=== PATIENT | male | born 1965 | race Caucasian/White ===

== ENCOUNTER 2016-04-28 21:59 | Emergency (ER) | payer OTHER ==
[~2016-04-28] VITALS: Ht 180.3 cm; Wt 74.0 kg
[~2016-04-28 21:59] MED LIST: BACT800T5 PO; BENA25TA3 PO; CLIN1CAP6 PO; IBUP-232 PO; PRED20 PO
[2016-04-28 22:02] VITALS: BP 141/88; PULSE 102; RESP 20; TEMP 98.5; O2SAT 93
[2016-04-28 22:45] LABS: AUTOMATED NEUTROPHIL # 2.9 TH/MM3 (1.8-7.7); BASOPHIL # 0.1 TH/MM3 (0-0.2); BASOPHIL % 1.6 % (0.0-2.0); EOSINOPHIL # 0.2 TH/MM3 (0-0.4); EOSINOPHIL % 2.5 % (0.0-4.0); HEMATOCRIT 42.6 % (39.0-51.0); HEMO FLAGS DIFF FINAL; LYMPH % 48.1 % (9.0-44.0); LYMPHOCYTE # 3.6 TH/MM3 (1.0-4.8); MEAN CELL VOLUME 89.9 FL (80.0-100.0); MEAN CORPUSCULAR HEMOGLOBIN 31.6 PG (27.0-34.0); MEAN CORPUSCULAR HGB CONC 35.2 % (32.0-36.0); MONO % 8.7 % (0.0-8.0); NEUT % 39.1 % (16.0-70.0); PLATELET COUNT 261 TH/MM3 (150-450); RED BLOOD COUNT 4.74 MIL/MM3 (4.50-5.90); RED CELL DISTRIBUTION WIDTH 14.2 % (11.6-17.2); WHITE BLOOD COUNT 7.4 TH/MM3 (4.0-11.0)
--- NOTE | 2016-04-28 23:02 | PD ---
HPI . Abdominal pain and chronic alcohol abuse Chief Complaint: Psychiatric Symptoms Time Seen by Provider: 22:14 Travel History International Travel<30 days: No Contact w/Intl Traveler<30days: No Traveled to known affect area: No History of Present Illness HPI Patient presents stating that he is using alcohol to treat his chronic abdominal pain. He comes in tonight requesting treatment and evaluation of his abdominal pain as well as detox from his alcohol abuse. He denies any vomiting or diarrhea. He denies any urinary tract symptoms of dysuria, frequency or urgency. He has not been running any fever. PFSH Past Medical History Arthritis: Yes (left knee) Autoimmune Disease: No Anxiety: No Depression: No Cancer: No Cardiovascular Problems: No Chemotherapy: No Cirrhosis: Yes (denies) Diabetes: No Diminished Hearing: No Endocrine: No Genitourinary: Yes Headaches: Yes Hepatitis: Yes (HEP C) Hiatal Hernia: No Hypertension: No Immune Disorder: No Musculoskeletal: Yes Neurologic: Yes Psychiatric: No Reproductive: No Respiratory: No Immunizations Current: No Pneumonia: Yes Radiation Therapy: No Seizures: Yes (R/T ETOH) Thyroid Disease: No Past Surgical History Abdominal Surgery: No Cardiac Surgery: No Ear Surgery: No Endocrine Surgery: No Eye Surgery: No Genitourinary Surgery: Yes Gynecologic Surgery: No Oral Surgery: Yes (Removed most teeth in 2012) Thoracic Surgery: No Other Surgery: Yes (right kidney CA, "froze the tumor") Social History Alcohol Use: Yes (daily whiskey) Tobacco Use: Yes (1 PPD) Substance Use: Yes (HX cocaine abuse) Allergies-Medications (Allergen,Severity, Reaction): Coded Allergies: Penicillin (Verified Allergy, Severe, ?, 04/28/16) Bactrim (Unverified Allergy, Mild, Hives, 04/28/16) Reported Meds & Prescriptions Reported Meds & Active Scripts Active No Active Prescriptions or Reported Medications Review of Systems Except as stated in HPI: all other systems reviewed are Neg General / Constitutional: No: Fever, Chills Gastrointestinal: Positive: Abdominal Pain, No: Nausea, Vomiting, Diarrhea Genitourinary: No: Urgency, Frequency, Dysuria Psychiatric: Positive: Suicidal Ideations, Substance Abuse Physical Exam Narrative GENERAL: Patient is intoxicated. SKIN: Warm and dry. HEAD: Atraumatic. Normocephalic. EYES: Pupils equal and round. Sclera are anicteric. ENT: No nasal bleeding or discharge. Mucous membranes pink and moist. NECK: Trachea midline. Neck is supple. CARDIOVASCULAR: Regular rate and rhythm. Heart sounds are normal. RESPIRATORY: No accessory muscle use. Lungs are clear with full air movement throughout. GASTROINTESTINAL: Abdomen soft, non-tender, nondistended. MUSCULOSKELETAL: No obvious deformities. No edema. NEUROLOGICAL: Awake and alert. No obvious cranial nerve deficits. Motor grossly within normal limits. Normal speech. PSYCHIATRIC: Appropriate mood and affect; insight and judgment normal. Data Data Last Documented VS Vital Signs Date Time Temp Pulse Resp B/P Pulse Ox O2 Delivery O2 Flow Rate FiO2 04/28/16 22:02 98.5 102 20 141/88 93 Orders Complete Blood Count With Diff (04/28/16 22:15) Comprehensive Metabolic Panel (04/28/16 22:15) Urinalysis - C+S If Indicated (04/28/16 22:15) Psych Screen (04/28/16 22:15) Drug Screen, Random Urine (04/28/16 22:15) Alcohol (Ethanol) (04/28/16 22:15) Ct Abd/Pel W Iv Contrast(Rout) (04/28/16 22:56) Iohexol 350 Inj (Omnipaque 350 Inj) (04/28/16 23:58) Labs Laboratory Tests Test 04/28/16 20:20 White Blood Count 7.4 TH/MM3 Red Blood Count 4.74 MIL/MM3 Hemoglobin 15.0 GM/DL Hematocrit 42.6 % Mean Corpuscular Volume 89.9 FL Mean Corpuscular Hemoglobin 31.6 PG Mean Corpuscular Hemoglobin 35.2 % Concent Red Cell Distribution Width 14.2 % Platelet Count 261 TH/MM3 Mean Platelet Volume 7.6 FL Neutrophils (%) (Auto) 39.1 % Lymphocytes (%) (Auto) 48.1 % Monocytes (%) (Auto) 8.7 % Eosinophils (%) (Auto) 2.5 % Basophils (%) (Auto) 1.6 % Neutrophils # (Auto) 2.9 TH/MM3 Lymphocytes # (Auto) 3.6 TH/MM3 Monocytes # (Auto) 0.6 TH/MM3 Eosinophils # (Auto) 0.2 TH/MM3 Basophils # (Auto) 0.1 TH/MM3 CBC Comment DIFF FINAL Differential Comment Sodium Level 141 MEQ/L Potassium Level 3.8 MEQ/L Chloride Level 105 MEQ/L Carbon Dioxide Level 25.8 MEQ/L Anion Gap 10 MEQ/L Blood Urea Nitrogen 11 MG/DL Creatinine 0.87 MG/DL Estimat Glomerular Filtration 93 ML/MIN Rate Random Glucose 115 MG/DL Calcium Level 8.6 MG/DL Total Bilirubin 0.3 MG/DL Aspartate Amino Transf 29 U/L (AST/SGOT) Alanine Aminotransferase 33 U/L (ALT/SGPT) Alkaline Phosphatase 84 U/L Total Protein 7.7 GM/DL Albumin 3.9 GM/DL Ethyl Alcohol Level 337 MG/DL [facility] Medical Decision Making Medical Screen Exam Complete: Yes Emergency Medical Condition: Yes Differential Diagnosis Differential diagnosis of abdominal pain includes but is not limited to gastritis, pancreatitis, hepatitis, gastroenteritis, gallbladder disease, constipation, urinary retention, UTI, peptic ulcer disease, diverticulitis or appendicitis Narrative Course Patient presents stating that he has chronic abdominal pain and that he uses alcohol to treat the chronic abdominal pain. CT: 1. No evidence of acute abdominal or pelvic process. No masses are identified. 2. Posttherapy changes following cryoablation of right renal mass 3. Constipation CBC & BMP Diagram 04/28/16 20:20 Alcohol level is 337 This patient is medically clear for psychiatric evaluation. Diagnosis Primary Impression: Acute alcohol intoxication Qualified Code: F10.120 - Acute alcohol intoxication, uncomplicated Additional Impressions: Suicidal ideation Chronic abdominal pain Constipation Qualified Code: K59.00 - Constipation, unspecified constipation type Scripts No Active Prescriptions or Reported Meds Condition: Charity Tejeda MD Apr 28, 2016 23:02
[2016-04-28 23:26] LABS: ANION GAP 10 MEQ/L (5-15)
[2016-04-28 23:32] LABS: ALKALINE PHOSPHATASE 84 U/L (45-117); ALT (GPT) 33 U/L (12-78); AST (GOT) 29 U/L (15-37); BICARBONATE 25.8 MEQ/L (21.0-32.0); BLOOD UREA NITROGEN 11 MG/DL (7-18); CHLORIDE 105 MEQ/L (98-107); GLOMERULAR FILTRATION RATE 93 ML/MIN (>89); POTASSIUM 3.8 MEQ/L (3.5-5.1); SODIUM (NA) 141 MEQ/L (136-145); TOTAL BILIRUBIN ADULT 0.3 MG/DL (0.2-1.0)
[2016-04-28] MEDS ORDERED: IOHEXOL 350 MG/ML 10 ML VIAL (for RAD DIAG) IV ONE (23:58)
--- NOTE | 2016-04-29 00:36 | RADRPT ---
EXAM DATE/TIME: 04/29/2016 00:02 [place] COMPARISON: MRI ABDOMEN W & W/O CONTRAST, August 05, 2014, 13:22. CT ABDOMEN & PELVIS W CONTRAST, March 13, 2014, 14:25. INDICATIONS : Left flank and abdominal pain. IV CONTRAST: 95 cc Omnipaque 350 (iohexol) IV ORAL CONTRAST: No oral contrast ingested. RADIATION DOSE: 9.15 CTDIvol (mGy) MEDICAL HISTORY : Hepatitis C. Substance abuse. SURGICAL HISTORY : Renal Biopsy. ENCOUNTER: Initial ACUITY: 1 day PAIN SCALE: 4/10 LOCATION: Left flank TECHNIQUE: Volumetric scanning of the abdomen and pelvis was performed. Using automated exposure control and ad justment of the mA and/or kV according to patient size, radiation dose was kept as low as reasonably achievable to obtain optimal diagnostic quality images. FINDINGS: Examination of the lung bases demonstrates no abnormality. No pleural fluid is identified. No pulmona ry nodules are present. The liver and spleen are normal in size and no focal defects are identified. The gallbladder and pancreas are unremarkable. No intrahepatic or extrahepatic ductal dilatation is s een. The adrenal glands are unremarkable. The left kidney is unremarkable with the exception of a 4 c m cyst in the upper pole the left kidney. The right renal carcinoma is decreased in size with dystrop hic ossification characteristic of post therapy changes. No abnormally enlarged lymph nodes are ident ified. Examination of the pelvis demonstrates no evidence of free fluid or pelvic mass. No abnormally enlarg ed inguinal or retroperitoneal lymph nodes are present. The bladder is unremarkable. There is a large amount of fecal material throughout the colon consistent with constipation. CONCLUSION: 1. No evidence of acute abdominal or pelvic process. No masses are identified. 2. Posttherapy changes following cryoablation of right renal mass 3. Constipation Alpesh Young MD on April 29, 2016 at 0:30 Board Certified Radiologist. This report was verified electronically.
[2016-04-29 01:43] VITALS: BP 160/70; PULSE 98; RESP 18; O2SAT 95
[2016-04-29 02:04] LABS: AMPHETAMINE, URINE NEG (NEG); BARBITURATES, URINE NEG (NEG); COCAINE, URINE NEG (NEG)
[2016-04-29 02:07] LABS: BLOOD, URINE NEG (NEG); COMMENT (UR) CULT NOT INDICATED; CULTURE IF INDICATED CULT NOT INDICATED; GLUCOSE,URINE NEG (NEG); KETONE, URINE NEG (NEG); MUCUS URINE FEW /lpf (OCC); NITRITE,URINE NEG (NEG); URINE COLOR LIGHT-YELLOW (YELLW/STRAW)
[2016-04-29 04:58] VITALS: BP 135/74; PULSE 90; RESP 18; O2SAT 94
[2016-04-29 07:45] VITALS: BP 147/89; PULSE 87; RESP 22; O2SAT 96
[2016-04-29] MEDS ORDERED: LORazepam 2 MG/ML VIAL IV PUSH PRN ×3 (08:00)
[2016-04-29] MEDS ORDERED: FLUMAZENIL 0.5 MG/5 ML VIAL IV PUSH PRN (08:00)
[2016-04-29] MEDS: LORazepam 2 MG/ML VIAL IV PUSH PRN ×2 (08:00→10:14)
[2016-04-29] MEDS ORDERED: LORazepam 2 MG TAB PO PRN (08:00)
[2016-04-29] MEDS ORDERED: LORazepam 1 MG TAB PO PRN (08:00)
[2016-04-29 10:09] VITALS: BP 154/94; PULSE 84; RESP 18; O2SAT 96
== END 2016-04-29 11:50 | disposition home or self-care (01) ==
LOC: NEPC 21:59
DX: F10.120 Alcohol abuse with intoxication, uncomplicated (principal); R45.851 Suicidal ideations; R10.9 Unspecified abdominal pain; G89.29 Other chronic pain; K59.00 Constipation, unspecified; F17.200 Nicotine dependence, unspecified, uncomplicated; Z87.39 Personal history of other diseases of the musculoskeletal system and connective tissue; Z87.448 Personal history of other diseases of urinary system; Z86.19 Personal history of other infectious and parasitic diseases; Z86.69 Personal history of other diseases of the nervous system and sense organs; Z87.01 Personal history of pneumonia (recurrent)
CPT/HCPCS: 74177; 80053; 80307; 80320; 81001; 85025; 96374; 96376; 99284; J2060; Q9967

== ENCOUNTER 2016-06-15 19:00 | Inpatient (IN) | payer OTHER ==
[~2016-06-15] VITALS: Ht 190.5 cm; Wt 87.2 kg
[2016-06-15 22:30] VITALS: BP 156/99; PULSE 80; RESP 18; TEMP 99.6; O2SAT 99
[2016-06-15] MEDS ORDERED: diphenhydrAMINE HCL 50 MG/ML VIAL - HS PRN IM (22:45)
[2016-06-15] MEDS ORDERED: ACETAMINOPHEN 325 MG TAB PO PRN (22:45)
[2016-06-15] MEDS ORDERED: FLUMAZENIL 0.5 MG/5 ML VIAL IV PUSH PRN (22:45)
[2016-06-15] MEDS ORDERED: LORazepam 2 MG TAB PO PRN (22:45)
[2016-06-15] MEDS ORDERED: MAGNESIUM HYDROXIDE SUSP 30 ML CUP PO PRN (22:45)
[2016-06-15] MEDS ORDERED: diphenhydrAMINE HCL 50 MG CAP - HS PRN PO (22:45)
[2016-06-15] MEDS ORDERED: LORazepam 2 MG/ML VIAL IV PUSH PRN ×4 (22:45)
[2016-06-15] MEDS ORDERED: ALUMINUM/MAGNESIUM/SIMETH 30 ML CUP PO PRN (22:45)
[2016-06-16 05:52] VITALS: BP 123/80; PULSE 74; RESP 20; TEMP 98.6; O2SAT 96
[2016-06-16] MEDS: LORazepam 1 MG TAB PO PRN ×3 (09:09→21:42)
[2016-06-16] MEDS: NICOTINE 21 MG/24 HR PATCH T-DERMAL SCH (09:09)
--- NOTE | 2016-06-16 15:43 | PD.CONS ---
[facility] service Reason for Consult medical management Primary Care Physician Haley Schwab MD Diagnoses: History of Present Illness 51-year-old male with past medical history of renal cell carcinoma with partial nephrectomy 3 years ago, history of hepatitis C, history of alcohol use, presented to psychiatric unit for evaluation. Patient says he has tremors especially in the morning. He denies any headaches, chest pain, shortness of breath, palpitations, no nausea, vomiting, diarrhea or constipation. Since he is trying to quit alcohol. Says he had seizures related to alcohol one time. Review of Systems Except as stated in HPI: all other systems reviewed are Neg Past Family Social History Allergies: Coded Allergies: Penicillin (Verified Allergy, Severe, ?, 05/02/16) Bactrim (Unverified Allergy, Mild, Hives, 05/02/16) Past Medical History History of renal cell carcinoma with partial nephrectomy 3 years ago Alcohol abuse with history of seizures, alcohol-induced Hepatitis C Past Surgical History Partial nephrectomy Reported Medications Reported Meds & Active Scripts Active No Active Prescriptions or Reported Medications Family History Mother history of colon cancer last week the age of 55. The patient said he had colonoscopy a year ago and was told he had polyps were removed and is planned to follow with GI in 3 years. Father at old age Social History Alcohol use 1 case of beer daily trying to cut down and quit. Denies illicit drug use or tobacco use. Physical Exam Vital Signs Vital Signs Date Time Temp Pulse Resp B/P Pulse Ox O2 Delivery O2 Flow Rate FiO2 06/16/16 05:52 98.6 74 20 123/80 96 06/15/16 22:30 99.6 80 18 156/99 99 Physical Exam GENERAL: This is a well-nourished, well-developed patient, in no apparent distress. SKIN: No rashes, ecchymoses or lesions. Cool and dry. HEAD: Atraumatic. Normocephalic. No temporal or scalp tenderness. EYES: Pupils equal round and reactive. Extraocular motions intact. No scleral icterus. No injection or drainage. ENT: Nose without bleeding, purulent drainage or septal hematoma. Throat without erythema, tonsillar hypertrophy or exudate. Uvula midline. Airway patent. NECK: Trachea midline. No JVD or lymphadenopathy. Supple, nontender, no meningeal signs. CARDIOVASCULAR: Regular rate and rhythm without murmurs, gallops, or rubs. RESPIRATORY: Clear to auscultation. Breath sounds equal bilaterally. No wheezes , rales, or rhonchi. GASTROINTESTINAL: Abdomen soft, non-tender, nondistended. No hepato-splenomegaly , or palpable masses. No guarding. MUSCULOSKELETAL: Extremities without clubbing, cyanosis, or edema. No joint tenderness, effusion, or edema noted. No calf tenderness. Negative Homans sign bilaterally. NEUROLOGICAL: Awake and alert. Cranial nerves II through XII intact. Motor and sensory grossly within normal limits. Five out of 5 muscle strength in all muscle groups. Normal speech. Assessment and Plan Assessment and Plan 51 yo male with Psychosis. EtOH withdrawal Management per psychiatry Chronic medical problems stable. To follow up as OP with PCP and consultants. Hep C follow up as OP with hepatology. LFT on 04/2016 are normal. Monitor VS. Stable medically. Hospitalist will sign off. Reconsult as need. Discussed Condition With patient, nurse Mary Diaz MD Jun 16, 2016 15:43
[2016-06-16] MEDS ORDERED: ACETAMINOPHEN 325 MG TAB PO PRN (16:15)
[2016-06-16] MEDS ORDERED: ALUMINUM/MAGNESIUM/SIMETH 30 ML CUP PO PRN (16:15)
[2016-06-16] MEDS ORDERED: MAGNESIUM HYDROXIDE SUSP 30 ML CUP PO PRN (16:15)
--- NOTE | 2016-06-16 16:31 | HHI.HP ---
Provisional Diagnosis Admission Date Jun 15, 2016 at 19:00 [place] I. Major depressive disorder recurrent severe without psychosis f 30 3. Alcohol abuse F 10.10 cocaine abuse F 14.10 Certification of Person's Competence To Provide Express and Informed Consent I have personally examined Lui Tapia , a person being served at [facility] on, Jun 16, 2016 16:18. Express and informed consent means consent voluntarily given in writing, by a competent person, after sufficient explanation and disclosure of the subject matter involved to enable the person to make a knowing and willful decision without any element of force, fraud, deceit, duress, or other form of constraint or coercion. This person is 18 years of age or older, is not now known to be incompetent to consent to treatment with a guardian advocate, and does not have a health care surrogate or proxy currently making medical treatment decisions. I have found this person to be one of the following: [] Competent to provide express and informed consent, as defined above, for voluntary admission to this facility and is competent to provide express and informed consent for treatment. He/she has the consistent capacity to make well reasoned, willful, and knowing decisions concerning his or her medical or mental health treatment. The person fully and consistently understands the purpose of the admission for examination/placement and is fully capable of personally exercising all rights assured [place] [x] Incompetent to provide express and informed consent to voluntary admission, and this is incompetent to provide express and informed consent to treatment. The person must be transferred to involuntary status and a petition for a guardian advocate filed with the Circuit Court. [] Refusing to provide express and informed consent to voluntary admission but is competent to provide express and informed consent for treatment. The person must be discharged or transferred to involuntary status. Form shall be completed within 24 hours of a person's arrival at the receiving facility and filed in the clinical record of each person: 1. Admitted on a voluntary basis 2. Permitted to provide express and informed consent to his/her own treatment 3. Allowed to transfer from involuntary to voluntary status 4. Prior to permitting a person to consent to his or her own treatment after having been previously found incompetent to consent to treatment. History of Present Illness Capacity: Lacks Capacity (patient lacks capacity to sign for admission, has capacity to sign for medication) HPI Patient is a 51-year-old white male who comes in under [facility] from [facility] stated for 717 at 1:24 PM that assessment reviewed stating suicidal ideations and depression stating he did not want to live anymore wanted to hang himself feeling hopeless and helpless patient seen screened at that facility urine toxicology positive for cocaine, blood alcohol level 271. At the present time patient sitting quietly with me in [place] with floor staff. 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 Patient acknowledges daily drinking, a.m. drinking, solo drinking, anything he can get his hands on including blistering, blackout spells, passing out spells there is a history of detox and rehabilitation a number of years ago. Patients had multiple DUIs in the past and also the legal charges related to his drinking. He acknowledges past use of opiates and cocaine has done intravenous opiate abuse. He states his depression has increased with increased sad mood, marked initial and mid insomnia, a.m. anergy, decreased concentration and attention. Patient states his never been , has no children. He denies any physical or sexual abuse. Is vague about mental health issues with his family of origin. At the present time patient does meet criteria for further psychiatric assessment under the [place] act I'll do first opinion requests a second opinions I feel is capacity to work with nurse with medication. We will start him on the see what protocol, will refrain from any of the benzodiazepines or opiates. Also offer him Remeron 15 mg at at bedtime there is some documentation from [facility] that the patient has been seen there is being seen through act. We need to verify this. Hopeless be fairly short stay making a firm back to act and [facility] area for outpatient treatment Review of Systems Constitutional: DENIES: Diaphoretic episodes, Fatigue, Fever, Weight gain, Weight loss, Chills, Dizziness, Change in appetite, Night Sweats Endocrine: DENIES: Heat/cold intolerance, Polydipsia, Polyuria, Polyphagia Eyes: DENIES: Blurred vision, Diplopia, Eye inflammation, Eye pain, Vision loss , Photosensitivity, Double Vision Ears, nose, mouth, throat: DENIES: Tinnitus, Hearing loss, Vertigo, Nasal discharge, Oral lesions, Throat pain, Hoarseness, Ear Pain, Running Nose, Epistaxis, Sinus Pain, Toothache, Odynophagia Respiratory: DENIES: Apneas, Cough, Snoring, Wheezing, Hemoptysis, Sputum production, Shortness of breath Cardiovascular: DENIES: Chest pain, Palpitations, Syncope, Dyspnea on Exertion , PND, Lower Extremity Edema, Orthopnea, Claudication Gastrointestinal: DENIES: Abdominal pain, Black stools, Bloody stools, Constipation, Diarrhea, Nausea, Vomiting, Difficulty Swallowing, Anorexia Genitourinary: DENIES: Sexual dysfunction, Urinary frequency, Urinary incontinence, Urgency, Hematuria, Dysuria, Nocturia, Penile Discharge, Testicular Pain, Testicular Swelling Musculoskeletal: DENIES: Joint pain, Muscle aches, Stiffness, Joint Swelling, Back pain, Neck pain Integumentary: DENIES: Abnormal pigmentation, Nail changes, Pruritus, Rash Hematologic/lymphatic: DENIES: Bruising, Lymphadenopathy Immunologic/allergic: DENIES: Eczema, Urticaria Neurologic: DENIES: Abnormal gait, Headache, Localized weakness, Paresthesias, Seizures, Speech Problems, Tremor, Poor Balance Psychiatric: COMPLAINS OF: Depression, Suicidal Ideation Past Psych History Psychological trauma history Patient denies sexual abuse or physical abuse Violence risk - others (6 mos) Low Violence risk - self (6 mos) Patient actively suicidal Substance Abuse History Drugs/Alcohol past 12 months Active alcohol cocaine user Past Family Social History Coded Allergies: Penicillin (Verified Allergy, Severe, ?, 05/02/16) Bactrim (Unverified Allergy, Mild, Hives, 05/02/16) Past Medical History 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 No Active Prescriptions or Reported Meds Current Medications Medications (Trade) Dose Ordered Sig/Estrellita Route Start Time Stop Time Status Last Admin (Atarax) 50 mg Q6H PRN PO 06/15/16 22:45 (Benadryl) 50 mg HS PRN PO 06/15/16 22:45 (Benadryl Inj) 50 mg HS PRN IM 06/15/16 22:45 (Tylenol) 650 mg Q4H PRN PO 06/15/16 22:45 (Milk Of Magnesia Liq) 30 ml DAILY PRN PO 06/15/16 22:45 (Mag-Al Plus Susp Liq) 30 ml Q6H PRN PO 06/15/16 22:45 06/15/16 22:59 (Habitrol 21 Mg Patch.24 Hr) 1 patch DAILY T-DERMAL 06/16/16 09:00 06/16/16 09:09 Miscellaneous Information 1 HS T-DERMAL 06/16/16 21:00 (Ativan) 1 mg Q4H PRN PO 06/15/16 22:45 06/16/16 14:56 (Ativan Inj) 1 mg Q4H PRN IV PUSH 06/15/16 22:45 (Ativan) 2 mg Q2H PRN PO 06/15/16 22:45 06/15/16 22:56 (Ativan Inj) 2 mg Q2H PRN IV PUSH 06/15/16 22:45 (Ativan Inj) 2 mg Q1H PRN IV PUSH 06/15/16 22:45 (Ativan Inj) 2 mg Q15M PRN IV PUSH 06/15/16 22:45 (Romazicon Inj) 0.2 mg Q1M PRN IV PUSH 06/15/16 22:45 Family History Patient vague history of alcohol mental health issues and family Social History Patient homeless did breakup with a girlfriend recently Patient's Strengths (min. 2) Patient verbal labile axis health care Physical Exam Patient seen screened her for [facility] exam reviewed and agreed with Vital Signs Vital Signs Date Time Temp Pulse Resp B/P Pulse Ox O2 Delivery O2 Flow Rate FiO2 06/16/16 05:52 98.6 74 20 123/80 96 Mental Status Examination Alert oriented tall white male short blondish hair and blondish beer calm cooperative with me though somewhat subtly drug-seeking. Appearance Clean and neat Speech: Unremarkable Orientation: x3 Memory: Unremarkable Thought Process: Logical Thought Content: Unremarkable Language Citizen [place] Fund of Knowledge Fair Hallucination Type: None Attention and Concentration: Other (fair) Suicidal Ideation: Yes (active suicidal ideation) Previous Suicide Attempts: Yes Homicidal Ideation: No Previous Homicide Attempts: No Insight: Poor Judgment: Poor Affect: Other (decreased range and intensity) Mood: Euthymic (to moderately dysphoric) Motor Activity: Normal gait Assessment & Plan Problem List: (1) Alcohol abuse ICD Code: F10.10 (2) Major depressive disorder, recurrent severe without psychotic features ICD Code: F33.2 (3) Cocaine abuse ICD Code: F14.10 Assessment & Plan Assessment length of stay 3-5 days, patient meets criteria for involuntary psychiatric hospitalization of the [place] act I will do first opinion request second opinion but I feel he does have capacity to sign for his medicine. We' ll continue him on the [place] protocol. And add Remeron 15 mg at at bedtime Discharge Planning To be determined Request HC Surrog/Guard Advoc?: No Alirio Lujan MD Jun 16, 2016 16:31
[2016-06-16 19:44] VITALS: BP 153/90; PULSE 89; RESP 20; TEMP 98.3; O2SAT 97
[2016-06-16] MEDS: REMOVE OLD NICOTINE PATCH T-DERMAL SCH (21:00)
[2016-06-16] MEDS: MIRTAZAPINE 15 MG TAB PO SCH (21:41)
[2016-06-17 06:12] VITALS: BP 138/85; PULSE 68; RESP 16; TEMP 98.8; O2SAT 99
[2016-06-17] MEDS ORDERED: NICOTINE 21 MG/24 HR PATCH T-DERMAL SCH (09:00)
[2016-06-17] MEDS: NICOTINE 21 MG/24 HR PATCH T-DERMAL SCH (09:17)
[2016-06-17] MEDS: LORazepam 1 MG TAB PO PRN ×2 (10:25→20:32)
--- NOTE | 2016-06-17 16:47 | HHI.PYPN ---
Subjective Remarks This is a request for second opinion for Dr. Lujan. Patient was seen, case discussed with nursing, admission note reviewed. Patient is pleasant and cooperative with exam. CIWA was 9 in the morning and 0 1400. Patient has mild tremors, mild nausea with no vomiting. Diarrhea "comes and goes." He is alert and oriented 4, no confusion, no visual hallucinations. Vital signs not elevated at this time. Patient is complaining of depressed mood and denies suicidal ideations intent or plan at this time. Auditory hallucinations telling him to run. Thinks that others are talking about him Objective Alert: Yes [place]: Person, Place, Date, Situation Mood: Anxious Affect: Blunted Memory Intact: Comment (intact) Hallucinations: Auditory (to run) Delusions: No Delusion Type: Other (that others are watching him) Suicidal: Ideation (ideation with no intent or plan) Homicidal: Ideation (denies) Insight/Judgment Fair Vitals/IOs Vital Signs Date Time Temp Pulse Resp B/P Pulse Ox O2 Delivery O2 Flow Rate FiO2 06/17/16 06:12 98.8 68 16 138/85 99 Assessment & Plan Problem List: (1) Alcohol abuse ICD Code: F10.10 (2) Major depressive disorder, recurrent severe without psychotic features ICD Code: F33.2 (3) Cocaine abuse ICD Code: F14.10 Assessment & Plan Continue alcohol detox. I agree with first opinion to continue petition. Criteria includes suicidal ideation and psychosis Justification for Cont. Inpt. Patient will decompensate in a less restrictive setting Request HC Surrog/Guard Advoc?: No Dc Donaldson DO Jun 17, 2016 16:47
[2016-06-17 19:54] VITALS: BP 149/90; PULSE 68; O2SAT 100
[2016-06-17 20:28] LABS: AMPHETAMINE, URINE NEG (NEG); BARBITURATES, URINE NEG (NEG); COCAINE, URINE NEG (NEG)
[2016-06-17] MEDS: MIRTAZAPINE 15 MG TAB PO SCH (20:33)
[2016-06-17] MEDS: REMOVE OLD NICOTINE PATCH T-DERMAL SCH (20:35)
[2016-06-17 21:17] LABS: AUTOMATED NEUTROPHIL # 3.2 TH/MM3 (1.8-7.7); BASOPHIL # 0.1 TH/MM3 (0-0.2); BASOPHIL % 0.8 % (0.0-2.0); EOSINOPHIL # 0.1 TH/MM3 (0-0.4); HEMATOCRIT 42.4 % (39.0-51.0); HEMO FLAGS DIFF FINAL; LYMPH % 37.2 % (9.0-44.0); LYMPHOCYTE # 2.4 TH/MM3 (1.0-4.8); MEAN CORPUSCULAR HEMOGLOBIN 31.9 PG (27.0-34.0); MEAN CORPUSCULAR HGB CONC 34.7 % (32.0-36.0); MONO % 10.3 % (0.0-8.0); NEUT % 49.7 % (16.0-70.0); PLATELET COUNT 212 TH/MM3 (150-450); RED BLOOD COUNT 4.61 MIL/MM3 (4.50-5.90); WHITE BLOOD COUNT 6.5 TH/MM3 (4.0-11.0)
[2016-06-17 21:40] LABS: BICARBONATE 26.2 MEQ/L (21.0-32.0); POTASSIUM 3.8 MEQ/L (3.5-5.1)
[2016-06-17] MEDS: hydrOXYzine HCL 50 MG TAB PO PRN (22:19)
[2016-06-18 06:28] VITALS: BP 126/87; PULSE 56; RESP 20; TEMP 98.3; O2SAT 97
[2016-06-18] MEDS: NICOTINE 21 MG/24 HR PATCH T-DERMAL SCH (08:50)
[2016-06-18] MEDS: LORazepam 1 MG TAB PO PRN ×3 (09:23→22:09)
--- NOTE | 2016-06-18 16:36 | HHI.PYPN ---
Subjective Remarks Patient discussed with treatment team, chart reviewed, patient seen on unit. Patient continues somewhat manipulative and drug-seeking appears to be asking for more Ativan than what is loud in the ciwa protocol. Also stating he is somewhat anxious and that his sleep is disturbed. I reinforced the need to continue with the program that withdrawal does cause some insomnia at times. Patient also states they found a [facility] based rehabilitation program in [facility]. We'll have our counselor explore this option also with them though it appears to be a program that does not accept any psychotropic medications. For now continue treatment Review of Systems Except as stated in HPI: all other systems reviewed are Neg Objective Alert: Yes [place]: Person, Place, Date, Situation Mood: Anxious Affect: Blunted Memory Intact: Comment (intact) Hallucinations: Auditory (denies at this time) Delusions: No Delusion Type: Other (that others are watching him) Suicidal: Ideation (ideation with no intent or plan) Homicidal: Ideation (denies) Insight/Judgment Poor Labs Test 06/17/16 06/17/16 18:00 20:50 Urine Opiates Screen NEG Urine Barbiturates Screen NEG Urine Amphetamines Screen NEG Urine Benzodiazepines Screen NEG Urine Cocaine Screen NEG Urine Cannabinoids Screen NEG White Blood Count 6.5 TH/MM3 Red Blood Count 4.61 MIL/MM3 Hemoglobin 14.7 GM/DL Hematocrit 42.4 % Mean Corpuscular Volume 92.0 FL Mean Corpuscular Hemoglobin 31.9 PG Mean Corpuscular Hemoglobin 34.7 % Concent Red Cell Distribution Width 14.0 % Platelet Count 212 TH/MM3 Mean Platelet Volume 8.4 FL Neutrophils (%) (Auto) 49.7 % Lymphocytes (%) (Auto) 37.2 % Monocytes (%) (Auto) 10.3 % Eosinophils (%) (Auto) 2.0 % Basophils (%) (Auto) 0.8 % Neutrophils # (Auto) 3.2 TH/MM3 Lymphocytes # (Auto) 2.4 TH/MM3 Monocytes # (Auto) 0.7 TH/MM3 Eosinophils # (Auto) 0.1 TH/MM3 Basophils # (Auto) 0.1 TH/MM3 CBC Comment DIFF FINAL Differential Comment Sodium Level 140 MEQ/L Potassium Level 3.8 MEQ/L Chloride Level 107 MEQ/L Carbon Dioxide Level 26.2 MEQ/L Anion Gap 7 MEQ/L Blood Urea Nitrogen 15 MG/DL Creatinine 1.09 MG/DL Estimat Glomerular Filtration 72 ML/MIN Rate Random Glucose 115 MG/DL Calcium Level 8.8 MG/DL Vitals/IOs Vital Signs Date Time Temp Pulse Resp B/P Pulse Ox O2 Delivery O2 Flow Rate FiO2 06/18/16 06:28 98.3 56 20 126/87 97 Assessment & Plan Problem List: (1) Alcohol abuse ICD Code: F10.10 (2) Major depressive disorder, recurrent severe without psychotic features ICD Code: F33.2 (3) Cocaine abuse ICD Code: F14.10 Assessment & Plan Estimated LOS: days patient's mood is improving, there still appears some drug- seeking behavior. For now continue treatment Justification for Cont. Inpt. At this time patient will decompensate placed in the lower level of care Discharge Planning To be determined Request HC Surrog/Guard Advoc?: Alirio Rolon MD Jun 18, 2016 16:36
[2016-06-18 18:27] VITALS: BP 165/98; PULSE 63; RESP 20; TEMP 97.5; O2SAT 100
[2016-06-18] MEDS: hydrOXYzine HCL 50 MG TAB PO PRN (20:30)
[2016-06-18] MEDS: MIRTAZAPINE 15 MG TAB PO SCH (20:30)
[2016-06-18] MEDS: REMOVE OLD NICOTINE PATCH T-DERMAL SCH (20:30)
[2016-06-19 05:26] VITALS: BP 140/80; PULSE 54; RESP 18; TEMP 97.5; O2SAT 94
[2016-06-19] MEDS: NICOTINE 21 MG/24 HR PATCH T-DERMAL SCH (09:00)
--- NOTE | 2016-06-19 13:16 | HHI.PYPN ---
Subjective Remarks Patient seen in [place] with nurse Love, chart reviewed, patient somewhat mildly drug-seeking, though he is also somewhat excited/apprehensive about being accepted in this rehabilitation program but appears to be Evangel[facility] no drug oriented rehabilitation program on the [facility]. He denies suicidality. For now we will discontinue the Remeron he states he gets restless leg with that. We also have to anticipate and help with him to be essentially drug-free by the time of discharge to that facility Review of Systems Except as stated in HPI: all other systems reviewed are Neg Objective Alert: Yes [place]: Person, Place, Date, Situation Mood: Anxious Affect: Blunted Memory Intact: Comment (intact) Hallucinations: Auditory (denies at this time) Delusions: No Delusion Type: Other (that others are watching him) Suicidal: Ideation (ideation with no intent or plan) Homicidal: Ideation (denies) Insight/Judgment Poor Vitals/IOs Vital Signs Date Time Temp Pulse Resp B/P Pulse Ox O2 Delivery O2 Flow Rate FiO2 06/19/16 05:26 97.5 54 18 140/80 94 Intake and Output 06/18/16 06/18/16 06/19/16 08:00 16:00 00:00 Intake Total 480 ml 480 ml Balance 480 ml 480 ml Assessment & Plan Problem List: (1) Alcohol abuse ICD Code: F10.10 (2) Major depressive disorder, recurrent severe without psychotic features ICD Code: F33.2 (3) Cocaine abuse ICD Code: F14.10 Assessment & Plan Estimated LOS: days patient continues somewhat depressed though resolving showing some insight into his need for an appropriate program, now denying voices in suicidality see med changes above Justification for Cont. Inpt. At this time patient will decompensate if placed in a lower level of care Discharge Planning To be determined Request HC Surrog/Guard Advoc?: No Alirio Lujan MD Jun 19, 2016 13:16
[2016-06-19 17:48] VITALS: BP 137/76; PULSE 55; RESP 18; TEMP 97.3; O2SAT 97
[2016-06-19] MEDS: REMOVE OLD NICOTINE PATCH T-DERMAL SCH (21:00)
[2016-06-19] MEDS: hydrOXYzine HCL 50 MG TAB PO PRN (21:22)
[2016-06-20 05:34] VITALS: BP 131/77; PULSE 55; RESP 16; TEMP 98.3; O2SAT 98
[2016-06-20] MEDS: NICOTINE 21 MG/24 HR PATCH T-DERMAL SCH (08:32)
--- NOTE | 2016-06-20 12:52 | HHI.DS ---
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 At the present time patient sitting quietly with me in [place] with floor staff. 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 Patient acknowledges daily drinking, a.m. drinking, solo drinking, anything he can get his hands on including blistering, blackout spells, passing out spells there is a history of detox and rehabilitation a number of years ago. Patients had multiple DUIs in the past and also the legal charges related to his drinking. He acknowledges past use of opiates and cocaine has done intravenous opiate abuse. He states his depression has increased with increased sad mood, marked initial and mid insomnia, a.m. anergy, decreased concentration and attention. Patient states his never been , has no children. He denies any physical or sexual abuse. Is vague about mental health issues with his family of origin. At the present time patient does meet criteria for further psychiatric assessment under the Negrete act I'll do first opinion requests a second opinions I feel is capacity to work with nurse with medication. We will start him on the see what protocol, will refrain from any of the benzodiazepines or opiates. Also offer him Remeron 15 mg at at bedtime there is some documentation from [facility] that the patient has been seen there is being seen through [facility]. We need to verify this. Hopeless be fairly short stay making a firm back to [facility] and [facility] area for outpatient treatment Tobacco Use In Past 30 Days: 5 or More Cigarettes/Day Alcohol Use: 4 or More Times Per Week Hospital Course Patient's hospital course was uneventful, there is some mild drug-seeking but he responded well to interventions. Patient did show some insight into the severity of his addictions and his need for an appropriate rehabilitation type program. Patient did make the effort and found to [facility] program and [facility] called [facility]" patient today denies suicidality homicidality voices or visions. Patient to be discharged tomorrow morning early to that facility for further care and attention and treatment, Josephine to transport. No Rx by pr Results Blood Pressure 131 / 77 Vital Signs Date Time Temp Pulse Resp B/P Pulse Ox O2 Delivery O2 Flow Rate FiO2 06/20/16 05:34 98.3 55 16 131/77 98 Laboratory Tests Test 06/17/16 20:50 Monocytes (%) (Auto) 10.3 % (0.0-8.0) Estimat Glomerular Filtration 72 ML/MIN (>89) Rate Random Glucose 115 MG/DL (74-106) Summary of Procedures None done Pending results at discharge: No Medications # of Antipsychotic meds at D/C: 0 Approp Antipsych med options 1 - Minimum of three failed multiple trials of monotherapy. 2 - Documented plan to taper to monotherapy due to previous use of multiple meds OR cross-taper in progress at D/C. 3 - Documentation of augmentation of Clozapine. 4 - Justification other than those listed in allowable values 1-3, document here : Discharge Discharge Date: Jun 21, 2016 Discharge Diagnosis: (1) Alcohol-induced mood disorder Diagnosis: Secondary ICD Code: F10.94 (2) Cocaine abuse Diagnosis: Secondary ICD Code: F14.10 (3) Major depressive disorder, recurrent severe without psychotic features Diagnosis: Principal ICD Code: F33.2 Mental Status Exam at Disch Alert oriented white male, he is normal active, mood is euthymic to mildly dysphoric, affect shows good range intensity, speech rate and rhythm within normal limits though no formal thought disorders, low auditory or visual hallucinations, no delusions, insight and judgment is poor to fair, cognition grossly intact Pt Condition on Discharge: Stable Discharge Disposition: Discharge Home Discharge Instructions Diet Instructions: As Tolerated, No Restrictions Activities you can perform: Regular-No Restrictions Scheduled Appointment: follow-up [facility] "[facility]" Discharge Time <= 30 minutes Discharge/Advance Care Plan Health Problems: (1) Alcohol abuse (2) Major depressive disorder, recurrent severe without psychotic features (3) Cocaine abuse Goals to promote your health * To prevent worsening of your condition and complications * To maintain your health at the optimal level Directions to meet your goals Take your medications as prescribed Follow your dietary instruction Follow activity as directed Keep your appointments as scheduled Take your immunizations and boosters as scheduled If your symptoms worsen call your PCP, if no PCP go to Urgent Care Center or Emergency Room For 01/10 questions related to your inpatient stay or results of tests pending at discharge, please contact Dr. Alirio Lujan at Smoking is Dangerous to Your Health. Avoid second hand smoking Alirio Lujan MD Jun 20, 2016 12:51
[2016-06-20 16:00] VITALS: BP 140/90; PULSE 62; RESP 18; TEMP 98.4; O2SAT 98
[2016-06-20] MEDS: REMOVE OLD NICOTINE PATCH T-DERMAL SCH (21:00)
[2016-06-20] MEDS: hydrOXYzine HCL 50 MG TAB PO PRN (21:35)
== END 2016-06-21 08:22 | disposition short-term general hospital (02) | DRG 897 ==
LOC: H260 19:00
PROVIDERS: ADMIT Psychiatry & Neurology Psychiatry; ATTEND Psychiatry & Neurology Psychiatry
DX: F10.14 Alcohol abuse with alcohol-induced mood disorder (principal); F14.10 Cocaine abuse, uncomplicated; F33.2 Major depressive disorder, recurrent severe without psychotic features; Y90.8 Blood alcohol level of 240 mg/100 ml or more; Z59.0 Homelessness; B19.20 Unspecified viral hepatitis C without hepatic coma; Z90.5 Acquired absence of kidney; Z85.528 Personal history of other malignant neoplasm of kidney
CPT/HCPCS: 80048; 80307; 85025